=== PATIENT | female | born 2000 | race African-American/Black ===

== ENCOUNTER 2019-03-19 22:36 | Emergency (ER) | payer OTHER ==
--- NOTE | 2019-03-19 23:55 | EDM.PDOC ---
ED HPI GENERAL MEDICAL PROBLEM - General Chief Complaint: Laceration Stated Complaint: LEFT WRIST LACERATION AT WORK Time Seen by Provider: 03/19/19 23:08 Source of Information: Reports: Patient, RN Notes Reviewed - History of Present Illness INITIAL COMMENTS - FREE TEXT/NARRATIVE: 18-year-old female comes in with laceration injury left wrist which she suffered at work. States she tripped over some type of gait at work falling, breaking a bunch of plates and suffering a laceration injury of the left wrist. She also did suffer sprain injury of her left ankle 2 days ago and continues to be painful with weightbearing. - Related Data Allergies Allergy/AdvReac Type Severity Reaction Status Date / Time No Known Allergies Allergy Verified 03/19/19 22:45 Home Meds: Home Meds . [No Known Home Meds] 03/19/19 [History] Past Medical History - Past Health History Medical/Surgical History: Denies Medical/Surgical History Social & Family History - Tobacco Use Smoking Status *Q: Never Smoker - Recreational Drug Use Recreational Drug Use: No ED ROS GENERAL - Review of Systems Review Of Systems: See Below Constitutional: Reports: No Symptoms HEENT: Reports: No Symptoms Respiratory: Denies: Shortness of Breath Cardiovascular: Denies: Chest Pain GI/Abdominal: Denies: Abdominal Pain, Nausea, Vomiting Musculoskeletal: Reports: Joint Pain (Left ankle) Skin: Reports: Other (Small laceration injury left volar wrist) ED EXAM, SKIN/RASH Exam: See Below General Appearance: Alert, No Apparent Distress Head: Atraumatic Neck: Supple Respiratory/Chest: No Respiratory Distress Extremities: Other (There is moderate tenderness of the lateral aspect left ankle, no visible swelling or deformity medial ankle is nontender, foot nontender, distal leg nontender) Skin: Other (2 cm very shallow superficial laceration of the left volar wrist, edges are very mildly separable. No active bleeding, no foreign body visible, no glass visible or palpable.) Course - Vital Signs Last Recorded V/S: Last Vital Signs Temp 99.1 F 03/19/19 22:45 Pulse 78 03/19/19 22:45 Resp 18 03/19/19 22:45 BP 147/82 H 03/19/19 22:45 Pulse Ox 98 03/19/19 22:45 - Orders/Labs/Meds Orders: Active Orders 24 hr Category Date Time Status Ankle Min 3V Lt [CR] Stat Exams 03/19/19 23:09 Taken - Re-Assessments/Exams Free Text/Narrative Re-Assessment/Exam: 03/20/19 01:00 Patient prefers that I not suture the laceration, there for we have Steri- Stripped it and wrapped with an Angelo wrap over the Steri-Strips. X-rays of the ankle are negative for fracture. Disharge instructions as documented. Departure - Departure Time of Disposition: 23:53 Disposition: Home, Self-Care 01 Condition: Fair Clinical Impression: Wrist laceration Qualifiers: Encounter type: initial encounter Laterality: right Qualified Code(s): S61.511A - Laceration without foreign body of right wrist, initial encounter Ankle sprain Qualifiers: Encounter type: initial encounter Involved ligament of ankle: unspecified ligament Laterality: left Qualified Code(s): S93.402A - Sprain of unspecified ligament of left ankle, initial encounter - Discharge Information Instructions: Ankle Sprain, [id number], Laceration Care, Adult Referrals: PCP,None [Primary Care Provider] - Forms: ED Department Discharge Additional Instructions: Try keep Steri-Strips on for about a week, keep them as dry as possible, have laceration rechecked if any sign of infection develops. Continue with Angelo wrap left ankle as needed. Rest and elevate foot and ankle is much as possible, Tylenol or ibuprofen as needed. - My Orders Last 24 Hours: My Active Orders 03/19/19 23:09 Ankle Min 3V Lt [CR] Stat - Assessment/Plan Last 24 Hours: My Active Orders 03/19/19 23:09 Ankle Min 3V Lt [CR] Stat
--- NOTE | 2019-03-20 11:13 | CR ---
Left ankle: Four views of the left ankle were obtained. Comparison: No previous ankle study. Ankle mortise is symmetric. No fracture, dislocation or other bony abnormality is seen. Impression: 1. No abnormality is identified on left ankle exam. Diagnostic code #1
== END 2019-03-20 00:01 | disposition home or self-care (01) ==
LOC: JD.ED 22:36
DX: S61.511A Laceration without foreign body of right wrist, initial encounter (principal); S93.402A Sprain of unspecified ligament of left ankle, initial encounter; Y99.0 Civilian activity done for income or pay; W18.09XA Striking against other object with subsequent fall, initial encounter
CPT/HCPCS: 73610-26-LT; 73610-LT; 99282; 99283-25